=== PATIENT | male | born 1955 ===

== ENCOUNTER 2017-08-19 10:46 | Day surgery (SDC) | payer MEDICARE ==
[~2017-08-19 10:46] MED LIST: Buffered Lidocaine 0.9% SYRIN* 5 ML/SYR SYRINGE INTRADERM ONE
[2017-08-19] MEDS ORDERED: ceFAZolin 2 GM in 100 MLS NS (*) BAG IVPB ONE (11:02)
[2017-08-19] MEDS ORDERED: Buffered Lidocaine 0.9% SYRIN* 5 ML/SYR SYRINGE ONE (11:02)
[2017-08-19] MEDS ORDERED: fentaNYL* 50 MCG/ML 2 ML VIAL (100 MCG VIAL) ONE (12:16)
[2017-08-19] MEDS ORDERED: Lidocaine 2% PF * 5 ML VIAL ONE (12:17)
[2017-08-19] MEDS ORDERED: Propofol* 10 MG/ML 20 ML BTL IV PUSH ONE ×2 (12:17→13:11)
[2017-08-19] MEDS ORDERED: Naloxone* 0.4 MG/ML 1 ML VIAL IV PRN (13:40)
[2017-08-19 15:14] VITALS: BP 120/69
== END 2017-08-19 14:57 | disposition home or self-care (01) ==
LOC: OR 10:46
PROVIDERS: ATTEND Plastic Surgery
DX: D04.61 Carcinoma in situ of skin of right upper limb, including shoulder (principal); Z88.8 Allergy status to other drugs, medicaments and biological substances; Z87.891 Personal history of nicotine dependence; Z85.72 Personal history of non-Hodgkin lymphomas; Z92.21 Personal history of antineoplastic chemotherapy; Z87.09 Personal history of other diseases of the respiratory system
CPT/HCPCS: 88305; 88331; 88332; J2704; J3010